=== PATIENT | male | born 1990 | race Caucasian/White ===

== ENCOUNTER 2017-03-13 22:27 | Emergency (ER) | payer BC ==
[~2017-03-13 22:27] MED LIST: DICLOFENAC PO; FLEXERIL PO; FLOMAX0.4 M1 PO; NO MEDICATIONS; NORCO 10-325 TA1 TAB PO; PHENERGAN25 M1 PO
== END 2017-03-13 23:48 | disposition home or self-care (01) ==
LOC: SED 22:27
DX: S61.432A Puncture wound without foreign body of left hand, initial encounter (principal); F17.210 Nicotine dependence, cigarettes, uncomplicated; Z23 Encounter for immunization; W22.8XXA Striking against or struck by other objects, initial encounter; Y92.9 Unspecified place or not applicable
CPT/HCPCS: 90471; 90715; 99283